=== PATIENT | male | born 1995 | race African-American/Black ===

== ENCOUNTER 2021-03-29 17:02 | Emergency (ER) | payer OTHER ==
[2021-03-29 17:27] VITALS: BMI 41.1
[2021-03-29] MEDS ORDERED: SODIUM CHLORIDE 0.9% 500 ML INFUS.BAG IV ONE (18:06)
[2021-03-29] MEDS ORDERED: KETOROLAC TROMETHAMINE 30 MG/1 ML VIAL IVPUSH ONE (18:06)
[2021-03-29] MEDS ORDERED: KETOROLAC TROMETHAMINE 30 MG/1 ML VIAL ONE (18:23)
[2021-03-29 18:44] LABS: BASO % 0.3 % (0-2.0); EOS % 0.3 % (0-4.5); HEMATOCRIT 49.7 % (35.4-49); HEMOGLOBIN 16.6 GM/dL (11.7-16.9); LYMPH % 27.4 % (8-40); MCH 27.5 pg (25.7-33.7); MCHC 33.4 g/dl (32.0-35.9); MEAN CELL VOLUME 82.4 fl (80-96); MEAN PLT VOLUME 7.7 fl (7.5-11.1); MONO % 11.8 % (3.8-10.2); NEUT % 60.2 % (42.8-82.8); PLATELET COUNT 267 10^3/uL (134-434); RBC 6.03 M/mm3 (4.00-5.60); RDW 14.6 % (11.9-15.9); WHITE BLOOD COUNT 9.2 K/mm3 (4.0-10.0)
[2021-03-29 19:08] LABS: ALBUMIN 3.9 g/dl (3.4-5.0)
[2021-03-29 19:09] LABS: BLOOD UREA NITROGEN 8.3 mg/dL (7-18)
[2021-03-29 19:12] LABS: CREATININE 1.2 mg/dL (0.55-1.3)
[2021-03-29 19:13] LABS: BILIRUBIN,TOTAL 0.4 mg/dL (0.2-1); TOT PROT 8.5 g/dl (6.4-8.2)
[2021-03-29 20:37] VITALS: BP 124/79; PULSE 82; TEMP 98.3
== END 2021-03-29 20:38 | disposition home or self-care (01) ==
LOC: JER 17:02
PROC: 3E033GC Introduction of Other Therapeutic Substance into Peripheral Vein, Percutaneous Approach (ICD-10-PCS; principal; 2021-03-29)
DX: K80.20 Calculus of gallbladder without cholecystitis without obstruction (principal)
CPT/HCPCS: 36415; 76705-TC; 80053; 83690; 85025; 99284-25